=== PATIENT | female | born 1990 | race Caucasian/White ===

== ENCOUNTER 2021-06-07 07:12 | Inpatient (IN) ==
[2021-06-07] MEDS ORDERED: OXYTOCIN 30 UNITS/500 ML BAG IV PRN ×2 (07:35→07:57)
[2021-06-07] MEDS ORDERED: SODIUM CHLORIDE 0.9% 250 ML IV PRN (08:00)
[2021-06-07 08:29] LABS: Hematocrit (blood only) 39.2 % (37-47); Hemoglobin 12.9 g/dL (12.0-16.0); Mean Corpuscular Hemoglobin 23.5 pg (25-34); Mean Corpuscular Hgb Conc 32.9 g/dL (32-36); Mean Corpuscular Volume 71.5 fL (80-100); Mean Platelet Volume 10.8 fL (7.4-10.4); Platelet Count 235 K/uL (130-400); RDW Coefficient of Variation 15.2 % (11.5-14.5); RDW Standard Deviation 39.7 fL (36.4-46.3); Red Blood Count 5.48 M/uL (4.2-5.4); White Blood Count 8.49 K/uL (4.8-10.8)
--- NOTE | 2021-06-07 08:29 | History & Physical Report ---
Date of Service June 07, 2021 Assessment & Plan (1) History of section complicating : Plan: 30-year-old -0-1-2 at 39 weeks and 5 days of gestation with history of prior section for ABVD for , Vital signs stable afebrile, heart rate reassuring, GBS negative, coronavirus testing negative, Patient understand the risks of and signed an informed consent, Cervix is favorable, discussed options of Davis balloon placement with low-dose oxytocin and AROM when able she understands risks of increased rupture with oxytocin use and agrees with plan. Plan to admit, monitor continuously, labs, IV fluids, Davis balloon mechanical cervical dilatation with low-dose oxytocin per protocol, All questions were answered. (2) History of twin in prior : (3) Desires (vaginal after ) trial: Admission and Anticipated Discharge Date Admission Date: June 07, 2021 History of Present Illness Primary Care Provider: Jennifer Henderson MD Patient is a 30-year-old 012 at 39 weeks and 5 days of gestation who is presenting today for scheduled induction of labor at term. She has a history of doing deliveries baby A was delivered vaginal and baby B was delivered via C- section. Patient has been planning to have TOLAC/ ( trial of labor after C- section/vaginal after ) Last ultrasound showed: 05/31/21 Biparietal diameter: 9.6 cm, 39w 2d Head circumference: 35.4 cm, 41w 3d Abdominal circumference: 33.0 cm, 36w 6d Femur length: 7.1 cm, 36w 1d Humeral length: 6.1 cm, 35w 3d HC/AC: 1.07, which is elevated. EFW: 3225 g +/- 477 g which is the 37th percentile. Utilizing the date of delivery obtained from the initial scan, growth of the BPD, HC, AC, femur and humerus is within normal limits. Head circumference growth is at the upper range of normal. Humeral growth is at the lower range of normal. IMPRESSION 1. HC/AC ratio is borderline elevated, as above. 2. Normal BRISEYDA 3. Vertex presentation. Patient was scheduled for induction of labor sooner than later due to head circumference and head of her dates. Patient understands risks of uterine rupture which may also increase with using induction agents like oxytocin. Patient understand the risks of uterine rupture as intra-abdominal bleeding, hypoxia, injury, even . I gave her information from a cog about the benefits and risks of versus repeat . She read them all and signed an informed consent. Patient has been feeling irregular contractions since yesterday but not painful. She denies leakage of fluid or vaginal bleeding. She reports good movements. Her has been uncomplicated except above GBS negative SARS COVID2 Negative Allergies Allergy/AdvReac Type Severity Reaction Status Date / Time No Known Allergies Allergy Unverified 06/07/21 08:02 Home Medications Medication Instructions Recorded Confirmed Type PNV 153-FA 400 mcg-om3 35 mg-dha 1 tab PO DAILY 06/07/21 06/07/21 History 25 mg-epa 5 mg-fish oil chew tablet ( Gummies) ferrous sulfate 325 mg (65 mg 325 mg PO DAILY 06/07/21 06/07/21 History iron) tablet (iron) Patient History Medical History (Updated 06/07/21 @ 08:26 by Ulices Berger MD) delivery delivered NOV 2017 Prolactinoma Thyroid nodule Surgical History (Updated 06/07/21 @ 08:26 by Ulices Berger MD) H/O ovarian cystectomy AUGUST 2009 Family History Father Diabetes Social History Smoking Status: Never smoker Hx Alcohol Use: No Hx Substance Use: No Preferred Language: Occitan Communication Ability: Effective Hotel Receptionist Required: No Beliefs That Will Affect Care: None marital status: Current Living Situation: Spouse Feels Safe at Home: Yes Safety Concerns: Feels Safe At This Time Assistive Devices: None OB History 2015, November 2017, induction at 38 weeks for twin , baby A delivered vaginal, baby B delivered via , Current [employer] History Denies history of STDs including chlamydia, gonorrhea, herpes Review of Systems as per Subjective / HPI Physical Exam Constitutional: well developed and well nourished Comfortable, not in acute distress Gastrointestinal (Abdomen): normal bowel sounds, soft, nontender, no hepatosplenomegaly (Gravid, Phil 7 to 8 pounds) Genitourinary: normal external appearance OB Exam Abdomen: + vertex Manual OB Exam: + cervical dilation 2 cm, + cervical effacement 50% and + station high OB Exam Monitor Tracing: + external uterine monitor used and + category I Results & Data ([facility]) Vital Signs (Past 12 Hours) Vital Signs Temp Pulse Resp BP 06/07/21 07:24 36.5 C 20 06/07/21 07:23 96 H 117/74
[2021-06-07] MEDS: LACTATED RINGER'S 1,000 ML IV PRN ×4 (08:32→21:04)
[2021-06-07 08:51] LABS: Alanine Aminotransferase 9 U/L (7-52); Albumin Globulin Ratio 1.1 (0.9-2); Albumin Level 3.6 gm/dl (3.4-5.0); Alkaline Phosphatase 107 U/L (34-104); Anion Gap 9 (3-11); Aspartate Aminotransferase 15 U/L (13-39); Bilirubin,Total 0.3 mg/dl (0.2-1.0); Blood Urea Nitrogen 6 mg/dl (6-23); Calcium 9.1 mg/dl (8.5-10.1); Carbon Dioxide 21 mmol/L (21-32); Chloride 106 mmol/L (98-107); Est GFR (African American) 139.8 ml/min; Est GFR (Non-African American) 120.6 ml/min; Globulin 3.2 gm/dl (2.5-4.0); Glucose 73 mg/dl (70-99(Fasting)); Potassium 3.5 mmol/L (3.5-5.1); Sodium 136 mmol/L (136-145); Total Protein 6.8 gm/dl (6.0-8.3)
[2021-06-07] MEDS ORDERED: BUTORPHANOL TARTRATE 1 MG/ML VIAL IV PRN (09:29)
[2021-06-07] MEDS ORDERED: miSOPROStoL 50 MCG TAB PO SCH (14:30)
--- NOTE | 2021-06-07 14:47 | Obstetrical Progress Note ---
Date of Service June 07, 2021 Assessment & Plan Admission and Anticipated Discharge Date Admission Date: June 07, 2021 Subjective Patient is reevaluated. She rates her pain 4/10, does not need epidural yet Bed side US: vertex, mcguire balloon in vagina, FHR 130's VE; Mcguire in vagina, removed it, cervix 4-5 cm/ 50%/ -2, tight bulginh bag, AROM'ed clear fluid FHR categ I [place]: ctxs q 2-4 min, Oxytocin is at 10 miu/ min Continue to monitor closely Results & Data ([facility]) Vital Signs (Past 12 Hours) Vital Signs Temp Pulse Resp BP 06/07/21 14:02 71 115/67 06/07/21 14:00 36.5 C 06/07/21 13:30 20 06/07/21 13:01 78 112/62 06/07/21 13:00 20 06/07/21 12:27 20 06/07/21 12:05 85 110/70 06/07/21 12:00 06/07/21 11:30 06/07/21 11:00 36.6 C 06/07/21 10:59 79 116/70 06/07/21 10:30 20 06/07/21 10:01 87 120/62 06/07/21 10:00 20 06/07/21 09:00 06/07/21 08:57 85 115/70 06/07/21 07:24 36.5 C 06/07/21 07:23 96 H 117/74
[2021-06-07] MEDS ORDERED: ePHEDrine sulfate 50 MG/ML AMP ONE (15:01)
[2021-06-07] MEDS ORDERED: BUPIVACAINE 0.25% 30 ML VIAL ONE (15:01)
[2021-06-07] MEDS ORDERED: fentaNYL citrate 100 MCG/2 ML VIAL ONE (15:01)
[2021-06-07] MEDS ORDERED: SODIUM CHLORIDE 0.9% INJ 10 ML VIAL ONE (15:01)
[2021-06-07] MEDS ORDERED: fentaNYL 2MCG/ML ROPIVACAINE 1.25MG/ML 100 ML BAG EPI ONE (15:02)
[2021-06-07] MEDS ORDERED: ePHEDrine sulfate 50 MG/ML AMP IV PRN (15:10)
[2021-06-07] MEDS ORDERED: fentaNYL 2MCG/ML ROPIVACAINE 1.25MG/ML 100 ML BAG EPI PRN (15:10)
[2021-06-07] MEDS ORDERED: NALBUPHINE HCL INJ 10 MG/ML AMP IV PRN (15:10)
[2021-06-07] MEDS ORDERED: ONDANSETRON INJ 2 MG/ML 2 ML VIAL IV PRN (15:10)
[2021-06-07] MEDS ORDERED: NALOXONE HCL 0.4 MG/1 ML VIAL/CARP IV PRN (15:10)
[2021-06-07] MEDS ORDERED: diphenhydrAMINE 50 MG/ML VIAL IV PRN (15:10)
[2021-06-07] MEDS ORDERED: NALOXONE HCL 1 MG in SODIUM CHLORIDE 0.9% 1000ML 1,000 ML IV PRN (15:10)
--- NOTE | 2021-06-07 16:31 | Obstetrical Progress Note ---
Date of Service June 07, 2021 Assessment & Plan Admission and Anticipated Discharge Date Admission Date: June 07, 2021 Subjective Patient became painful after AROM and received epidural for pain. Now she is comfortable and has no complaints. Still leaking clear fluid, heart rate category 1, contractions every 2 to 3 minutes. Pitocin is still at 10 miu/min. Continue to monitor closely. Results & Data ([facility]) Vital Signs (Past 12 Hours) Vital Signs Temp Pulse Resp BP Pulse Ox 06/07/21 16:25 85 92 06/07/21 16:24 98 H 90 06/07/21 16:21 36.3 C L 20 06/07/21 16:20 91 H 100 06/07/21 16:19 84 118/61 06/07/21 16:15 88 100 06/07/21 16:12 94 H 125/61 06/07/21 16:10 92 H 100 06/07/21 16:08 90 125/76 06/07/21 16:06 20 06/07/21 16:05 94 H 96 06/07/21 16:01 91 H 111/58 L 06/07/21 16:00 85 20 100 06/07/21 15:59 90 118/64 06/07/21 15:57 82 118/62 06/07/21 15:56 90 114/55 L 06/07/21 15:55 92 H 100 06/07/21 15:54 89 92 06/07/21 15:53 86 118/54 L 06/07/21 15:50 86 20 100 06/07/21 15:47 85 88 L 06/07/21 15:45 87 100 06/07/21 15:40 100 H 93 06/07/21 15:37 82 127/78 06/07/21 15:35 78 126/71 100 06/07/21 15:34 79 92 06/07/21 15:30 79 100 06/07/21 15:29 83 90 06/07/21 15:25 85 100 06/07/21 15:21 24 06/07/21 15:20 88 88 L 06/07/21 15:18 87 100 06/07/21 15:13 86 91 06/07/21 15:12 83 100 06/07/21 15:07 79 100 06/07/21 15:00 22 06/07/21 14:30 20 03/28/22 14:02 71 115/67 06/07/21 14:00 36.5 C 20 06/07/21 13:30 20 06/07/21 13:01 78 112/62 06/07/21 13:00 20 06/07/21 12:27 20 06/07/21 12:05 85 110/70 06/07/21 12:00 20 06/07/21 11:30 20 06/07/21 11:00 36.6 C 20 06/07/21 10:59 79 116/70 06/07/21 10:30 20 06/07/21 10:01 87 120/62 06/07/21 10:00 20 06/07/21 09:00 20 06/07/21 08:57 85 115/70 06/07/21 07:24 36.5 C 20 06/07/21 07:23 96 H 117/74
--- NOTE | 2021-06-07 16:43 | Anesthesiology Consultation ---
Date of Service June 07, 2021 Assessment & Plan ASA ASA2 Proposed Anesthesia Anesthesia Type: Labor Epidural Risk / Benefits Reviewed With: PT / POA / Parent / Guardian, Accepts Plan and Informed Consent Obtained History Height/Weight Height: 5 ft 2 in Weight: 80.286 kg Allergies Allergy/AdvReac Type Severity Reaction Status Date / Time No Known Allergies Allergy Unverified 06/07/21 08:02 Medications Home Medications Medication Instructions Recorded Confirmed Last Taken PNV 153-FA 400 mcg-om3 35 mg-dha 1 tab PO DAILY 06/07/21 06/07/21 06/06/21 09:00 25 mg-epa 5 mg-fish oil chew tablet ( Gummies) ferrous sulfate 325 mg (65 mg 325 mg PO DAILY 06/07/21 06/07/21 06/05/21 22:00 iron) tablet (iron) Active Medications Generic Name Dose Route Start Last Admin Trade Name Freq PRN Reason Stop Dose Admin Lactated Ringer's 1,000 mls @ 150 mls/hr 06/07/21 07:35 06/07/21 15:53 Lr IV 06/09/21 07:34 150 mls/hr .[id number] PRN Administration L&D Protocol Protocol Oxytocin 30 units in 500 mls @ 10 mls/hr 06/07/21 07:57 06/07/21 13:30 Pitocin IV 06/09/21 07:56 0.6 units/hr .Q24H PRN 10 mls/hr Labor Induction/Augmentation Titration Protocol 0.6 UNITS/HR Past Medical History Medical History delivery delivered NOV 2017 Prolactinoma Thyroid nodule Exercise / Class Metabolic Activity II 4-5 Yardwork/Stairs/Walk up hill Past Family History Family History Father Diabetes Past Surgical History Surgical History H/O ovarian cystectomy AUGUST 2009 Past Anesthesia History No Hx of Anesthesia Complications and No Family Hx of Anesthesia Complications History of PONV No Hx of PONV and No Hx of Motion Sickness Social History Smoking Status: Never smoker Hx Alcohol Use: No Hx Substance Use: No Review of Systems denies fever/cough/ colds/ chest pain/ SOB/ ELKIN denies ELKIN Physical Exam Vital Signs Last Vital Signs Temp 36.3 C L 06/07/21 16:21 Pulse 76 06/07/21 16:40 Resp 20 06/07/21 16:30 BP 98/51 L 06/07/21 16:35 Pulse Ox 100 06/07/21 16:40 ENMT Mouth: no TMJ abnormality and no dentition abnormality Thyromental Distance: > or= 3.5 Finger Breadths Mallampati Class: II Neck neck extension not limited Respiratory normal respiratory effort; no respiratory distress Auscultation: lungs clear to auscultation bilaterally Cardiovascular Rate/Rhythm: regular rate and regular rhythm Neurologic moves all extremities Psychiatric Orientation: alert and oriented x 3 Testing Laboratory Results 06/07/21 08:18 06/07/21 08:18 Blood Type O Positive 06/07/21 08:18 Antibody Screen NEGATIVE 06/07/21 08:18
--- NOTE | 2021-06-07 17:27 | Obstetrical Progress Note ---
Date of Service June 07, 2021 Assessment & Plan Admission and Anticipated Discharge Date Admission Date: June 07, 2021 Subjective Patient is comfortable, no pain nor pressure FHR had mild early decelerations with ctxs with quick recovery and moderate variability VE: Patient bladder is full, cervix is unchanged, head is high, gush of clear fluid + Davis catheter is placed to gravity, drained 600 ml clear urine Continue to monitor closely Results & Data ([facility]) Vital Signs (Past 12 Hours) Vital Signs Temp Pulse Resp BP Pulse Ox 06/07/21 17:20 72 106/55 L 06/07/21 17:15 79 100 06/07/21 17:10 80 100 06/07/21 17:05 72 100 06/07/21 17:02 86 94 06/07/21 17:00 71 20 100 06/07/21 16:55 82 100 06/07/21 16:50 77 96/52 L 100 06/07/21 16:45 69 100 06/07/21 16:40 76 100 06/07/21 16:35 77 98/51 L 100 06/07/21 16:34 74 92 06/07/21 16:30 76 20 100 06/07/21 16:25 85 92 06/07/21 16:24 98 H 90 06/07/21 16:21 36.3 C L 20 06/07/21 16:20 91 H 100 06/07/21 16:19 84 118/61 06/07/21 16:15 88 100 06/07/21 16:12 94 H 125/61 06/07/21 16:10 92 H 100 06/07/21 16:08 90 125/76 06/07/21 16:06 20 06/07/21 16:05 94 H 96 06/07/21 16:01 91 H 111/58 L 06/07/21 16:00 85 20 100 06/07/21 15:59 90 118/64 06/07/21 15:57 82 118/62 06/07/21 15:56 90 114/55 L 06/07/21 15:55 92 H 100 06/07/21 15:54 89 92 06/07/21 15:53 86 118/54 L 06/07/21 15:50 86 20 100 06/07/21 15:47 85 88 L 06/07/21 15:45 87 100 06/07/21 15:40 100 H 93 06/07/21 15:37 82 127/78 06/07/21 15:35 78 126/71 100 06/07/21 15:34 79 92 06/07/21 15:30 79 100 06/07/21 15:29 83 90 06/07/21 15:25 85 100 06/07/21 15:21 24 06/07/21 15:20 88 88 L 06/07/21 15:18 87 100 06/07/21 15:13 86 91 06/07/21 15:12 83 100 06/07/21 15:07 79 100 06/07/21 15:00 22 06/07/21 14:30 20 06/07/21 14:02 71 115/67 06/07/21 14:00 36.5 C 20 06/07/21 13:30 20 06/07/21 13:01 78 112/62 06/07/21 13:00 20 06/07/21 12:27 20 06/07/21 12:05 85 110/70 06/07/21 12:00 20 06/07/21 11:30 20 06/07/21 11:00 36.6 C 20 06/07/21 10:59 79 116/70 06/07/21 10:30 20 06/07/21 10:01 87 120/62 06/07/21 10:00 20 06/07/21 09:00 20 06/07/21 08:57 85 115/70 06/07/21 07:24 36.5 C 20 06/07/21 07:23 96 H 117/74
--- NOTE | 2021-06-07 18:41 | Obstetrical Progress Note ---
Date of Service June 07, 2021 Assessment & Plan Admission and Anticipated Discharge Date Admission Date: June 07, 2021 Subjective heart rate had early decelerations with of the contractions with quick s pontaneous recovery and moderate variability between. Vaginal exam, cervix is 5 to 6 cm dilated, 70% effaced, head at -2 station without contraction and -1 with contraction, anterior fontanelle is at 7 o'clock position, [place] with contractions every 2 to 4 minutes, Continue to monitor closely Results & Data ([facility]) Vital Signs (Past 12 Hours) Vital Signs Temp Pulse Resp BP Pulse Ox 06/07/21 18:36 71 100 06/07/21 18:34 80 108/69 06/07/21 18:31 75 100 06/07/21 18:30 20 06/07/21 18:26 36.4 C L 76 20 100 06/07/21 18:22 34 L 109/65 06/07/21 18:21 81 100 06/07/21 18:19 67 89 L 06/07/21 18:16 72 100 06/07/21 18:11 85 99 06/07/21 18:06 79 100 06/07/21 18:04 85 93 06/07/21 18:00 89 20 99 06/07/21 17:59 87 85 L 06/07/21 17:55 83 100 06/07/21 17:50 85 100 06/07/21 17:49 84 98/58 L 06/07/21 17:47 86 93 06/07/21 17:45 81 20 100 06/07/21 17:40 86 100 06/07/21 17:35 79 108/59 L 100 06/07/21 17:33 86 91 06/07/21 17:30 90 100 06/07/21 17:25 84 100 06/07/21 17:23 92 H 89 L 06/07/21 17:20 80 106/55 L 100 06/07/21 17:15 79 100 06/07/21 17:10 80 100 06/07/21 17:05 72 100 06/07/21 17:02 86 94 06/07/21 17:00 71 20 100 06/07/21 16:55 82 100 06/07/21 16:50 77 96/52 L 100 06/07/21 16:45 69 100 06/07/21 16:40 76 100 06/07/21 16:35 77 98/51 L 100 06/07/21 16:34 74 92 06/07/21 16:30 36.3 C L 76 20 100 06/07/21 16:25 85 92 06/07/21 16:24 98 H 90 06/07/21 16:21 36.3 C L 20 06/07/21 16:20 91 H 100 06/07/21 16:19 84 118/61 06/07/21 16:15 88 100 06/07/21 16:12 94 H 125/61 06/07/21 16:10 92 H 100 06/07/21 16:08 90 125/76 06/07/21 16:06 20 06/07/21 16:05 94 H 96 06/07/21 16:01 91 H 111/58 L 06/07/21 16:00 85 20 100 06/07/21 15:59 90 118/64 06/07/21 15:57 82 118/62 06/07/21 15:56 90 114/55 L 06/07/21 15:55 92 H 100 06/07/21 15:54 89 92 06/07/21 15:53 86 118/54 L 06/07/21 15:50 86 20 100 06/07/21 15:47 85 88 L 06/07/21 15:45 87 100 06/07/21 15:40 100 H 93 06/07/21 15:37 82 127/78 06/07/21 15:35 78 126/71 100 06/07/21 15:34 79 92 06/07/21 15:30 79 100 06/07/21 15:29 83 90 06/07/21 15:25 85 100 06/07/21 15:21 24 06/07/21 15:20 88 88 L 06/07/21 15:18 87 100 06/07/21 15:13 86 91 06/07/21 15:12 83 100 06/07/21 15:07 79 100 06/07/21 15:00 22 06/07/21 14:30 20 06/07/21 14:02 71 115/67 06/07/21 14:00 36.5 C 20 06/07/21 13:30 20 06/07/21 13:01 78 112/62 06/07/21 13:00 20 06/07/21 12:27 20 06/07/21 12:05 85 110/70 06/07/21 12:00 20 06/07/21 11:30 20 06/07/21 11:00 36.6 C 06/07/21 10:59 79 116/70 06/07/21 10:30 20 06/07/21 10:01 87 120/62 06/07/21 10:00 20 06/07/21 09:00 06/07/21 08:57 85 115/70 06/07/21 07:24 36.5 C 06/07/21 07:23 96 H 117/74
--- NOTE | 2021-06-07 21:49 | Obstetrical Progress Note ---
Date of Service June 07, 2021 Assessment & Plan Admission and Anticipated Discharge Date Admission Date: June 07, 2021 Subjective Late entry from 8:45 PM. Patient felt pressure and wanted to be checked. Her cervix was 10 cm dilated, 100% effaced head was at 0 to +1 station heart rate was category 1 with early decelerations with some of the contractions. Patient had trial push and heart rate had decelerations to 80s/90s for about 4 minutes. Oxytocin was stopped and nasal oxygen was started heart rate recovered back to normal 130s with good variability. Epidural rate was decreased and patient was late to labor down. Patient is reevaluated again since she is feeling more pressure but no pain no urged to push. Head station is about the same with not much sent with pushing. Patient desires to rest relax and restart pushing when she feels more pressure. Continue to monitor closely. Results & Data ([facility]) Vital Signs (Past 12 Hours) Vital Signs Temp Pulse Resp BP Pulse Ox 06/07/21 21:41 99 H 100 06/07/21 21:37 102 H 89 L 06/07/21 21:36 107 H 100 06/07/21 21:35 110 H 104/60 06/07/21 21:31 109 H 100 06/07/21 21:26 91 H 100 06/07/21 21:24 100 H 91 06/07/21 21:21 101 H 100 06/07/21 21:19 94 H 116/67 06/07/21 21:16 87 100 06/07/21 21:12 108 H 93 06/07/21 21:11 108 H 96 06/07/21 21:06 96 H 100 06/07/21 21:05 93 H 120/61 06/07/21 21:02 104 H 91 06/07/21 21:01 96 H 100 06/07/21 21:00 36.8 C 18 06/07/21 20:56 91 H 87 L 06/07/21 20:51 108 H 100 06/07/21 20:50 100 H 114/56 L 06/07/21 20:46 96 H 100 06/07/21 20:41 97 H 100 06/07/21 20:39 96 H 92 06/07/21 20:36 97 H 100 06/07/21 20:35 105 H 138/74 06/07/21 20:31 101 H 92 06/07/21 20:27 18 06/07/21 20:26 92 H 100 06/07/21 20:24 89 90 06/07/21 20:21 84 100 06/07/21 20:20 82 113/61 06/07/21 20:19 86 89 L 06/07/21 20:16 85 100 06/07/21 20:11 90 99 06/07/21 20:10 90 88 L 06/07/21 20:07 84 113/79 06/07/21 20:06 84 100 06/07/21 20:03 82 89 L 06/07/21 20:01 76 18 100 06/07/21 19:57 99 H 90 06/07/21 19:56 83 98 06/07/21 19:52 96 H 91 06/07/21 19:51 95 H 100 06/07/21 19:50 73 107/63 06/07/21 19:46 80 100 06/07/21 19:41 77 100 06/07/21 19:36 75 94 06/07/21 19:35 75 108/64 06/07/21 19:34 81 93 06/07/21 19:31 85 100 06/07/21 19:26 92 H 88 L 06/07/21 19:23 88 91 06/07/21 19:21 90 98/53 L 100 06/07/21 19:17 82 91 06/07/21 19:16 82 97 06/07/21 19:11 36.8 C 95 H 18 89 L 06/07/21 19:06 81 100 06/07/21 19:05 83 109/73 92 06/07/21 19:01 96 H 100 06/07/21 18:58 82 90 06/07/21 18:56 77 100 06/07/21 18:52 74 92 06/07/21 18:51 72 110/68 99 06/07/21 18:46 80 99 06/07/21 18:41 84 100 06/07/21 18:36 71 100 06/07/21 18:34 80 108/69 06/07/21 18:31 75 100 06/07/21 18:30 20 06/07/21 18:26 36.4 C L 76 20 100 06/07/21 18:22 34 L 109/65 06/07/21 18:21 81 100 06/07/21 18:19 67 89 L 06/07/21 18:16 72 100 06/07/21 18:11 85 99 06/07/21 18:06 79 100 06/07/21 18:04 85 93 06/07/21 18:00 89 20 99 06/07/21 17:59 87 85 L 06/07/21 17:55 83 100 06/07/21 17:50 85 100 06/07/21 17:49 84 98/58 L 06/07/21 17:47 86 93 06/07/21 17:45 81 20 100 06/07/21 17:40 86 100 06/07/21 17:35 79 108/59 L 100 06/07/21 17:33 86 91 06/07/21 17:30 90 100 06/07/21 17:25 84 100 06/07/21 17:23 92 H 89 L 06/07/21 17:20 80 106/55 L 100 06/07/21 17:15 79 100 06/07/21 17:10 80 100 06/07/21 17:05 72 100 06/07/21 17:02 86 94 06/07/21 17:00 71 20 100 06/07/21 16:55 82 100 06/07/21 16:50 77 96/52 L 100 06/07/21 16:45 69 100 06/07/21 16:40 76 100 06/07/21 16:35 77 98/51 L 100 06/07/21 16:34 74 92 06/07/21 16:30 36.3 C L 76 20 100 06/07/21 16:25 85 92 06/07/21 16:24 98 H 90 06/07/21 16:21 36.3 C L 20 06/07/21 16:20 91 H 100 06/07/21 16:19 84 118/61 06/07/21 16:15 88 100 06/07/21 16:12 94 H 125/61 06/07/21 16:10 92 H 100 06/07/21 16:08 90 125/76 06/07/21 16:06 20 06/07/21 16:05 94 H 96 06/07/21 16:01 91 H 111/58 L 06/07/21 16:00 85 20 100 06/07/21 15:59 90 118/64 06/07/21 15:57 82 118/62 06/07/21 15:56 90 114/55 L 06/07/21 15:55 92 H 100 06/07/21 15:54 89 92 06/07/21 15:53 86 118/54 L 06/07/21 15:50 86 20 100 06/07/21 15:47 85 88 L 06/07/21 15:45 87 100 06/07/21 15:40 100 H 93 06/07/21 15:37 82 127/78 06/07/21 15:35 78 126/71 100 06/07/21 15:34 79 92 06/07/21 15:30 79 100 06/07/21 15:29 83 90 06/07/21 15:25 85 100 06/07/21 15:21 24 06/07/21 15:20 88 88 L 06/07/21 15:18 87 100 06/07/21 15:13 86 91 06/07/21 15:12 83 100 06/07/21 15:07 79 100 06/07/21 15:00 22 06/07/21 14:30 20 06/07/21 14:02 71 115/67 06/07/21 14:00 36.5 C 20 06/07/21 13:30 20 06/07/21 13:01 78 112/62 06/07/21 13:00 20 06/07/21 12:27 20 06/07/21 12:05 85 110/70 06/07/21 12:00 20 06/07/21 11:30 20 06/07/21 11:00 36.6 C 20 06/07/21 10:59 79 116/70 06/07/21 10:30 20 06/07/21 10:01 87 120/62 06/07/21 10:00 20
--- NOTE | 2021-06-07 23:21 | Obstetrical Progress Note ---
Date of Service June 07, 2021 Assessment & Plan Admission and Anticipated Discharge Date Admission Date: June 07, 2021 Subjective Patient labored down for over an hour She feels pressure and contractions started to hurt Started to push with ctxs, head is still at 0 station and feels Occiput posterior Bed side US: OP, eyes facing towards patient's anterior abdominal wall. FHR 130-140's with moderate variability, early decels with some ctxs Patient does not want C Section at all and wants to try all options for successful . Plan to push in knee chest position Contineu to monitor closely. Results & Data ([facility]) Vital Signs (Past 12 Hours) Vital Signs Temp Pulse Resp BP Pulse Ox 06/07/21 23:17 110 H 90 06/07/21 23:16 106 H 98 06/07/21 23:11 98 H 71 L 06/07/21 23:06 115 H 99 06/07/21 23:04 113 H 129/61 06/07/21 23:01 106 H 100 06/07/21 22:56 104 H 100 06/07/21 22:51 112 H 100 06/07/21 22:50 112 H 127/65 91 06/07/21 22:46 102 H 100 06/07/21 22:44 93 H 93 06/07/21 22:41 90 100 06/07/21 22:36 93 H 103/54 L 100 06/07/21 22:31 100 H 100 06/07/21 22:26 95 H 100 06/07/21 22:22 86 111/56 L 06/07/21 22:21 87 100 06/07/21 22:16 86 100 06/07/21 22:12 110 H 93 06/07/21 22:11 102 H 100 06/07/21 22:07 108 H 91 06/07/21 22:06 106 H 97 06/07/21 22:05 98 H 120/69 06/07/21 22:01 108 H 100 06/07/21 21:56 94 H 100 06/07/21 21:51 97 H 100 06/07/21 21:50 98 H 111/69 06/07/21 21:46 94 H 100 06/07/21 21:41 99 H 100 06/07/21 21:37 102 H 89 L 06/07/21 21:36 107 H 100 06/07/21 21:35 110 H 104/60 06/07/21 21:31 109 H 100 06/07/21 21:26 91 H 100 06/07/21 21:24 100 H 91 06/07/21 21:21 101 H 100 06/07/21 21:19 94 H 116/67 06/07/21 21:16 87 100 06/07/21 21:12 108 H 93 06/07/21 21:11 108 H 96 06/07/21 21:06 96 H 100 06/07/21 21:05 93 H 120/61 06/07/21 21:02 104 H 91 06/07/21 21:01 96 H 100 06/07/21 21:00 36.8 C 18 06/07/21 20:56 91 H 87 L 06/07/21 20:51 108 H 100 06/07/21 20:50 100 H 114/56 L 06/07/21 20:46 96 H 100 06/07/21 20:41 97 H 100 06/07/21 20:39 96 H 92 06/07/21 20:36 97 H 100 06/07/21 20:35 105 H 138/74 06/07/21 20:31 101 H 92 06/07/21 20:27 18 06/07/21 20:26 92 H 100 06/07/21 20:24 89 90 06/07/21 20:21 84 100 06/07/21 20:20 82 113/61 06/07/21 20:19 86 89 L 06/07/21 20:16 85 100 06/07/21 20:11 90 99 06/07/21 20:10 90 88 L 06/07/21 20:07 84 113/79 06/07/21 20:06 84 100 06/07/21 20:03 82 89 L 06/07/21 20:01 76 18 100 06/07/21 19:57 99 H 90 06/07/21 19:56 83 98 06/07/21 19:52 96 H 91 06/07/21 19:51 95 H 100 06/07/21 19:50 73 107/63 06/07/21 19:46 80 100 06/07/21 19:41 77 100 06/07/21 19:36 75 94 06/07/21 19:35 75 108/64 03/28/22 19:34 81 93 06/07/21 19:31 85 100 06/07/21 19:26 92 H 88 L 06/07/21 19:23 88 91 06/07/21 19:21 90 98/53 L 100 06/07/21 19:17 82 91 06/07/21 19:16 82 97 06/07/21 19:11 36.8 C 95 H 18 89 L 06/07/21 19:06 81 100 06/07/21 19:05 83 109/73 92 06/07/21 19:01 96 H 100 06/07/21 18:58 82 90 06/07/21 18:56 77 100 06/07/21 18:52 74 92 06/07/21 18:51 72 110/68 99 06/07/21 18:46 80 99 06/07/21 18:41 84 100 06/07/21 18:36 71 100 06/07/21 18:34 80 108/69 06/07/21 18:31 75 100 06/07/21 18:30 20 06/07/21 18:26 36.4 C L 76 20 100 06/07/21 18:22 34 L 109/65 06/07/21 18:21 81 100 06/07/21 18:19 67 89 L 06/07/21 18:16 72 100 06/07/21 18:11 85 99 06/07/21 18:06 79 100 06/07/21 18:04 85 93 06/07/21 18:00 89 20 99 06/07/21 17:59 87 85 L 06/07/21 17:55 83 100 06/07/21 17:50 85 100 06/07/21 17:49 84 98/58 L 06/07/21 17:47 86 93 06/07/21 17:45 81 20 100 06/07/21 17:40 86 100 06/07/21 17:35 79 108/59 L 100 06/07/21 17:33 86 91 06/07/21 17:30 90 100 06/07/21 17:25 84 100 06/07/21 17:23 92 H 89 L 06/07/21 17:20 80 106/55 L 100 06/07/21 17:15 79 100 06/07/21 17:10 80 100 06/07/21 17:05 72 100 06/07/21 17:02 86 94 06/07/21 17:00 71 20 100 06/07/21 16:55 82 100 06/07/21 16:50 77 96/52 L 100 06/07/21 16:45 69 100 06/07/21 16:40 76 100 06/07/21 16:35 77 98/51 L 100 06/07/21 16:34 74 92 06/07/21 16:30 36.3 C L 76 20 100 06/07/21 16:25 85 92 06/07/21 16:24 98 H 90 06/07/21 16:21 36.3 C L 20 06/07/21 16:20 91 H 100 06/07/21 16:19 84 118/61 06/07/21 16:15 88 100 06/07/21 16:12 94 H 125/61 06/07/21 16:10 92 H 100 06/07/21 16:08 90 125/76 06/07/21 16:06 20 06/07/21 16:05 94 H 96 06/07/21 16:01 91 H 111/58 L 06/07/21 16:00 85 20 100 06/07/21 15:59 90 118/64 06/07/21 15:57 82 118/62 06/07/21 15:56 90 114/55 L 06/07/21 15:55 92 H 100 06/07/21 15:54 89 92 06/07/21 15:53 86 118/54 L 06/07/21 15:50 86 20 100 06/07/21 15:47 85 88 L 06/07/21 15:45 87 100 06/07/21 15:40 100 H 93 06/07/21 15:37 82 127/78 06/07/21 15:35 78 126/71 100 06/07/21 15:34 79 92 06/07/21 15:30 79 100 06/07/21 15:29 83 90 06/07/21 15:25 85 100 06/07/21 15:21 24 06/07/21 15:20 88 88 L 06/07/21 15:18 87 100 06/07/21 15:13 86 91 06/07/21 15:12 83 100 06/07/21 15:07 79 100 03/28/22 15:00 22 06/07/21 14:30 20 06/07/21 14:02 71 115/67 06/07/21 14:00 36.5 C 20 06/07/21 13:30 20 06/07/21 13:01 78 112/62 06/07/21 13:00 20 06/07/21 12:27 20 06/07/21 12:05 85 110/70 06/07/21 12:00 20 06/07/21 11:30 20
[2021-06-08] MEDS ORDERED: AZITHROMYCIN 500 MG in DEXTROSE 5% 250 ML IV STA (00:38)
--- NOTE | 2021-06-08 00:42 | Obstetrical Progress Note ---
Date of Service June 08, 2021 Assessment & Plan Admission and Anticipated Discharge Date Admission Date: June 07, 2021 Subjective Patient has been fully dilated since 8:40 PM last night. she pushed for almost 2 hours but unable to bring the head down more than +1 station She pushed on knee-chest, all fours, on her sides and on her back but head has been at 0 to +1 station despite all pushing in different positions. Head started to become cone shaped in persistent occiput posterior postion which was also confirmed by bedside ultrasound. heart rate has been category 1 except deceleration with contractions. Patient is exhausted and desires repeat tonight. She understands is a major surgery with risks including but not limited to bleeding, infection, injury to surrounding organs like bowels bladder, scarring adhesion. She understood all and signed an informed consent. We will proceed with , all surgical team is notified and antibiotics were ordered. Continue to monitor closely. Results & Data ([facility]) Vital Signs (Past 12 Hours) Vital Signs Temp Pulse Resp BP Pulse Ox 06/08/21 00:36 92 H 100 06/08/21 00:35 97 H 92 06/08/21 00:31 81 100 06/08/21 00:27 101 H 93 06/08/21 00:26 107 H 96 06/08/21 00:21 90 105/67 100 06/08/21 00:16 97 H 100 06/08/21 00:11 104 H 100 06/08/21 00:10 101 H 88 L 06/08/21 00:06 103 H 100 06/08/21 00:03 108 H 89 L 06/08/21 00:01 113 H 100 06/07/21 23:56 105 H 72 L 06/07/21 23:51 99 H 100 06/07/21 23:50 100 H 90 06/07/21 23:46 114 H 100 06/07/21 23:41 112 H 94 06/07/21 23:40 105 H 92 06/07/21 23:36 118 H 100 06/07/21 23:35 86 88 L 06/07/21 23:31 96 H 100 06/07/21 23:26 116 H 100 06/07/21 23:24 99 H 92 06/07/21 23:21 113 H 98 06/07/21 23:17 110 H 90 06/07/21 23:16 106 H 98 06/07/21 23:11 98 H 71 L 06/07/21 23:06 115 H 99 06/07/21 23:04 113 H 129/61 06/07/21 23:01 106 H 100 06/07/21 22:56 104 H 100 06/07/21 22:51 112 H 100 06/07/21 22:50 112 H 127/65 91 06/07/21 22:46 102 H 100 06/07/21 22:44 93 H 93 06/07/21 22:41 90 100 06/07/21 22:36 93 H 103/54 L 100 06/07/21 22:31 100 H 100 06/07/21 22:26 95 H 100 06/07/21 22:22 86 111/56 L 06/07/21 22:21 87 100 06/07/21 22:16 86 100 06/07/21 22:12 110 H 93 06/07/21 22:11 102 H 100 06/07/21 22:07 108 H 91 06/07/21 22:06 106 H 97 06/07/21 22:05 98 H 120/69 06/07/21 22:01 108 H 100 06/07/21 21:56 94 H 100 06/07/21 21:51 97 H 100 06/07/21 21:50 98 H 111/69 06/07/21 21:46 94 H 100 06/07/21 21:41 99 H 100 06/07/21 21:37 102 H 89 L 06/07/21 21:36 107 H 100 06/07/21 21:35 110 H 104/60 06/07/21 21:31 109 H 100 06/07/21 21:26 91 H 100 06/07/21 21:24 100 H 91 06/07/21 21:21 101 H 100 06/07/21 21:19 94 H 116/67 06/07/21 21:16 87 100 06/07/21 21:12 108 H 93 06/07/21 21:11 108 H 96 06/07/21 21:06 96 H 100 06/07/21 21:05 93 H 120/61 06/07/21 21:02 104 H 91 06/07/21 21:01 96 H 100 06/07/21 21:00 36.8 C 18 06/07/21 20:56 91 H 87 L 06/07/21 20:51 108 H 100 06/07/21 20:50 100 H 114/56 L 06/07/21 20:46 96 H 100 06/07/21 20:41 97 H 100 06/07/21 20:39 96 H 92 06/07/21 20:36 97 H 100 06/07/21 20:35 105 H 138/74 06/07/21 20:31 101 H 92 06/07/21 20:27 18 06/07/21 20:26 92 H 100 06/07/21 20:24 89 90 06/07/21 20:21 84 100 06/07/21 20:20 82 113/61 06/07/21 20:19 86 89 L 06/07/21 20:16 85 100 06/07/21 20:11 90 99 06/07/21 20:10 90 88 L 06/07/21 20:07 84 113/79 06/07/21 20:06 84 100 06/07/21 20:03 82 89 L 06/07/21 20:01 76 18 100 06/07/21 19:57 99 H 90 06/07/21 19:56 83 98 06/07/21 19:52 96 H 91 06/07/21 19:51 95 H 100 06/07/21 19:50 73 107/63 06/07/21 19:46 80 100 06/07/21 19:41 77 100 06/07/21 19:36 75 94 06/07/21 19:35 75 108/64 06/07/21 19:34 81 93 06/07/21 19:31 85 100 06/07/21 19:26 92 H 88 L 06/07/21 19:23 88 91 06/07/21 19:21 90 98/53 L 100 06/07/21 19:17 82 91 06/07/21 19:16 82 97 06/07/21 19:11 36.8 C 95 H 18 89 L 06/07/21 19:06 81 100 06/07/21 19:05 83 109/73 92 06/07/21 19:01 96 H 100 06/07/21 18:58 82 90 06/07/21 18:56 77 100 06/07/21 18:52 74 92 06/07/21 18:51 72 110/68 99 06/07/21 18:46 80 99 06/07/21 18:41 84 100 06/07/21 18:36 71 100 06/07/21 18:34 80 108/69 06/07/21 18:31 75 100 06/07/21 18:30 20 06/07/21 18:26 36.4 C L 76 20 100 06/07/21 18:22 34 L 109/65 06/07/21 18:21 81 100 06/07/21 18:19 67 89 L 06/07/21 18:16 72 100 06/07/21 18:11 85 99 06/07/21 18:06 79 100 06/07/21 18:04 85 93 06/07/21 18:00 89 20 99 06/07/21 17:59 87 85 L 06/07/21 17:55 83 100 06/07/21 17:50 85 100 06/07/21 17:49 84 98/58 L 06/07/21 17:47 86 93 06/07/21 17:45 81 20 100 06/07/21 17:40 86 100 06/07/21 17:35 79 108/59 L 100 06/07/21 17:33 86 91 06/07/21 17:30 90 100 06/07/21 17:25 84 100 06/07/21 17:23 92 H 89 L 06/07/21 17:20 80 106/55 L 100 06/07/21 17:15 79 100 06/07/21 17:10 80 100 06/07/21 17:05 72 100 06/07/21 17:02 86 94 06/07/21 17:00 71 20 100 06/07/21 16:55 82 100 06/07/21 16:50 77 96/52 L 100 06/07/21 16:45 69 100 06/07/21 16:40 76 100 06/07/21 16:35 77 98/51 L 100 06/07/21 16:34 74 92 06/07/21 16:30 36.3 C L 76 20 100 06/07/21 16:25 85 92 06/07/21 16:24 98 H 90 06/07/21 16:21 36.3 C L 20 06/07/21 16:20 91 H 100 06/07/21 16:19 84 118/61 06/07/21 16:15 88 100 06/07/21 16:12 94 H 125/61 06/07/21 16:10 92 H 100 06/07/21 16:08 90 125/76 06/07/21 16:06 20 06/07/21 16:05 94 H 96 06/07/21 16:01 91 H 111/58 L 06/07/21 16:00 85 20 100 06/07/21 15:59 90 118/64 06/07/21 15:57 82 118/62 06/07/21 15:56 90 114/55 L 06/07/21 15:55 92 H 100 06/07/21 15:54 89 92 06/07/21 15:53 86 118/54 L 06/07/21 15:50 86 20 100 06/07/21 15:47 85 88 L 06/07/21 15:45 87 100 06/07/21 15:40 100 H 93 06/07/21 15:37 82 127/78 06/07/21 15:35 78 126/71 100 06/07/21 15:34 79 92 06/07/21 15:30 79 100 06/07/21 15:29 83 90 06/07/21 15:25 85 100 06/07/21 15:21 24 06/07/21 15:20 88 88 L 06/07/21 15:18 87 100 06/07/21 15:13 86 91 06/07/21 15:12 83 100 06/07/21 15:07 79 100 06/07/21 15:00 22 06/07/21 14:30 20 06/07/21 14:02 71 115/67 06/07/21 14:00 36.5 C 20 06/07/21 13:30 20 06/07/21 13:01 78 112/62 06/07/21 13:00 20
--- NOTE | 2021-06-08 00:43 | Post Operative Brief Note ---
Immediate Post Op Note v1 Date of Surgery June 08, 2021 Pre & Post Diagnosis Operation Date: 06/08/21 01:15 <No data on this case meets the specified criteria> Arrest of descent, failed TOLAC/ I identified the patient and participated in the time-out.: Yes Procedure Operation Date: 06/08/21 01:15 <No data on this case meets the specified criteria> Repeat Low transverse Ceserean Section. Surgeon Ulices Berger MD [employer] ERNESTINA Hong Estimated Blood Loss 600 Findings Consistent with Post-Op Diagnosis Drains Davis Catheter Anesthesia Type Labor Epidural Complications none Disposition Accompanied Patient To Recovery: Yes
[2021-06-08] MEDS ORDERED: LACTATED RINGER'S 1,000 ML IV SCH ×3 (00:45→02:30)
[2021-06-08] MEDS ORDERED: OXYTOCIN 10 UNITS/ML 10ML VIAL ONE (00:52)
[2021-06-08] MEDS ORDERED: MoRPHine SULFATE PF 1 MG/ML 10 ML AMP/VIAL ONE (00:52)
[2021-06-08] MEDS ORDERED: CITRIC ACID/SODIUM CITRATE 15 ML UDC PO SCH (01:00)
[2021-06-08] MEDS ORDERED: ceFAZolin 2000MG 2,000 MG/15 ML SYR IV SCH (01:00)
[2021-06-08] MEDS ORDERED: LIDOCAINE 2%/EPINEPHRINE 1:200,000 20 ML SDV ONE (01:20)
[2021-06-08] MEDS ORDERED: PHENYLEPHRINE 100MCG/ML 5ML SYR ONE (01:20)
[2021-06-08] MEDS ORDERED: ePHEDrine sulfate 50 MG/ML AMP ONE (01:28)
[2021-06-08] MEDS ORDERED: ONDANSETRON INJ 2 MG/ML 2 ML VIAL ONE (01:35)
[2021-06-08] MEDS ORDERED: MoRPHine SULFATE 2 MG/ML CARP IV PRN (02:07)
[2021-06-08] MEDS ORDERED: diphenhydrAMINE 50 MG/ML VIAL IV PRN ×2 (02:07→20:07)
[2021-06-08] MEDS ORDERED: ONDANSETRON INJ 2 MG/ML 2 ML VIAL IV PRN ×2 (02:07→20:07)
[2021-06-08] MEDS ORDERED: NALOXONE HCL 1 MG in SODIUM CHLORIDE 0.9% 1000ML 1,000 ML IV PRN (02:07)
[2021-06-08] MEDS ORDERED: NALOXONE HCL 0.4 MG/1 ML VIAL/CARP IV PRN (02:07)
[2021-06-08] MEDS ORDERED: NALOXONE HCL 0.08 MG in SYRINGE 1.8 ML IV PRN (02:07)
[2021-06-08] MEDS ORDERED: LACTATED RINGER'S 500 ML IV PRN (02:07)
[2021-06-08] MEDS ORDERED: MoRPHine SULFATE PF 1 MG/ML 10 ML AMP/VIAL EPI ONE (02:07)
[2021-06-08] MEDS ORDERED: NALBUPHINE HCL INJ 10 MG/ML AMP IV PRN (02:07)
[2021-06-08] MEDS ORDERED: ePHEDrine sulfate 50 MG/ML AMP IV PRN (02:07)
[2021-06-08] MEDS ORDERED: NO NARCOTICS OR SEDATIVES SCH (02:15)
[2021-06-08] MEDS ORDERED: SODIUM CHLORIDE 0.9% 1000ML 1,000 ML IV SCH (02:15)
[2021-06-08] MEDS ORDERED: DC INTRASPINAL MORPHINE SCH (02:15)
[2021-06-08] MEDS ORDERED: HYDROCORTISONE ACETATE 25 MG SUPP PR PRN (02:28)
[2021-06-08] MEDS ORDERED: DIPHTHERIA/TETANUS/PERTUSSIS 0.5 ML SYR/VIAL IM ONE (02:28)
[2021-06-08] MEDS ORDERED: SENNA 8.6 MG TAB PO PRN (02:28)
[2021-06-08] MEDS ORDERED: MEASLES, MUMPS & RUBELLA VIRUS VIAL SQ ONE (02:28)
[2021-06-08] MEDS ORDERED: BENZOCAINE 20% AER SPR 82.5 GM CAN EXT PRN (02:28)
[2021-06-08] MEDS ORDERED: MAGNESIUM HYDROXIDE SUSP 30 ML UDC PO PRN (02:28)
--- NOTE | 2021-06-08 03:20 | Anesthesiology Progress Note ---
Date of Service June 08, 2021 Anesthesia Post Procedure Vital Signs Vital Signs: Temp Pulse Resp BP Pulse Ox 06/08/21 03:18 102 H 99 06/08/21 03:17 86 118/57 L 06/08/21 03:13 94 H 100 06/08/21 03:08 87 100 06/08/21 03:07 85 125/67 06/08/21 03:03 96 H 99 06/08/21 02:58 97 H 103/58 L 97 06/08/21 02:53 93 H 97 06/08/21 02:48 97 H 122/56 L 98 06/08/21 02:43 92 H 100 06/08/21 02:39 103 H 120/58 L 06/08/21 02:38 103 H 99 06/08/21 02:33 112 H 93 06/08/21 02:28 113 H 119/56 L 98 06/08/21 00:56 92 H 100 06/08/21 00:51 100 H 86 L 06/08/21 00:46 88 100 06/08/21 00:44 95 H 89 L 06/08/21 00:41 95 H 100 06/08/21 00:36 92 H 100 06/08/21 00:35 97 H 92 06/08/21 00:31 81 100 06/08/21 00:27 101 H 93 06/08/21 00:26 107 H 96 06/08/21 00:21 90 105/67 100 06/08/21 00:16 97 H 100 06/08/21 00:11 104 H 100 06/08/21 00:10 101 H 88 L 06/08/21 00:06 103 H 100 06/08/21 00:03 108 H 89 L 06/08/21 00:01 113 H 100 06/07/21 23:56 105 H 72 L 06/07/21 23:51 99 H 100 06/07/21 23:50 100 H 90 06/07/21 23:46 114 H 100 06/07/21 23:41 112 H 94 06/07/21 23:40 105 H 92 06/07/21 23:36 118 H 100 06/07/21 23:35 86 88 L 06/07/21 23:31 96 H 100 06/07/21 23:26 116 H 100 06/07/21 23:24 99 H 92 06/07/21 23:21 113 H 98 06/07/21 23:17 110 H 90 06/07/21 23:16 106 H 98 06/07/21 23:11 98 H 71 L 06/07/21 23:06 115 H 99 06/07/21 23:04 113 H 129/61 06/07/21 23:01 106 H 100 06/07/21 22:59 36.9 C 18 06/07/21 22:56 104 H 100 06/07/21 22:51 112 H 100 06/07/21 22:50 112 H 127/65 91 06/07/21 22:46 102 H 100 06/07/21 22:44 93 H 93 06/07/21 22:41 90 100 06/07/21 22:36 93 H 103/54 L 100 06/07/21 22:31 100 H 100 06/07/21 22:26 95 H 100 06/07/21 22:22 86 111/56 L 06/07/21 22:21 87 100 06/07/21 22:16 86 100 06/07/21 22:12 110 H 93 06/07/21 22:11 102 H 100 06/07/21 22:07 108 H 91 06/07/21 22:06 106 H 97 06/07/21 22:05 98 H 120/69 06/07/21 22:01 108 H 100 06/07/21 21:56 94 H 100 06/07/21 21:51 97 H 100 06/07/21 21:50 98 H 111/69 06/07/21 21:46 94 H 100 06/07/21 21:41 99 H 100 06/07/21 21:37 102 H 89 L 06/07/21 21:36 107 H 100 06/07/21 21:35 110 H 104/60 06/07/21 21:31 109 H 100 06/07/21 21:26 91 H 100 06/07/21 21:24 100 H 91 06/07/21 21:21 101 H 100 06/07/21 21:19 94 H 116/67 06/07/21 21:16 87 100 06/07/21 21:12 108 H 93 06/07/21 21:11 108 H 96 06/07/21 21:06 96 H 100 06/07/21 21:05 93 H 120/61 06/07/21 21:02 104 H 91 06/07/21 21:01 96 H 100 06/07/21 21:00 36.8 C 18 06/07/21 20:56 91 H 87 L 06/07/21 20:51 108 H 100 06/07/21 20:50 100 H 114/56 L 06/07/21 20:46 96 H 100 06/07/21 20:41 97 H 100 06/07/21 20:39 96 H 92 06/07/21 20:36 97 H 100 06/07/21 20:35 105 H 138/74 06/07/21 20:31 101 H 92 06/07/21 20:27 18 06/07/21 20:26 92 H 100 06/07/21 20:24 89 90 06/07/21 20:21 84 100 06/07/21 20:20 82 113/61 06/07/21 20:19 86 89 L 06/07/21 20:16 85 100 06/07/21 20:11 90 99 06/07/21 20:10 90 88 L 06/07/21 20:07 84 113/79 06/07/21 20:06 84 100 06/07/21 20:03 82 89 L 06/07/21 20:01 76 18 100 06/07/21 19:57 99 H 90 06/07/21 19:56 83 98 06/07/21 19:52 96 H 91 06/07/21 19:51 95 H 100 06/07/21 19:50 73 107/63 06/07/21 19:46 80 100 06/07/21 19:41 77 100 06/07/21 19:36 75 94 06/07/21 19:35 75 108/64 06/07/21 19:34 81 93 06/07/21 19:31 85 100 06/07/21 19:26 92 H 88 L 06/07/21 19:23 88 91 06/07/21 19:21 90 98/53 L 100 06/07/21 19:17 82 91 06/07/21 19:16 82 97 06/07/21 19:11 36.8 C 95 H 18 89 L 06/07/21 19:06 81 100 06/07/21 19:05 83 109/73 92 06/07/21 19:01 96 H 100 06/07/21 18:58 82 90 06/07/21 18:56 77 100 06/07/21 18:52 74 92 06/07/21 18:51 72 110/68 99 06/07/21 18:46 80 99 06/07/21 18:41 84 100 06/07/21 18:36 71 100 06/07/21 18:34 80 108/69 06/07/21 18:31 75 100 06/07/21 18:30 20 06/07/21 18:26 36.4 C L 76 20 100 06/07/21 18:22 34 L 109/65 06/07/21 18:21 81 100 06/07/21 18:19 67 89 L 06/07/21 18:16 72 100 06/07/21 18:11 85 99 06/07/21 18:06 79 100 06/07/21 18:04 85 93 06/07/21 18:00 89 20 99 06/07/21 17:59 87 85 L 06/07/21 17:55 83 100 06/07/21 17:50 85 100 06/07/21 17:49 84 98/58 L 06/07/21 17:47 86 93 06/07/21 17:45 81 20 100 06/07/21 17:40 86 100 06/07/21 17:35 79 108/59 L 100 06/07/21 17:33 86 91 06/07/21 17:30 90 100 06/07/21 17:25 84 100 06/07/21 17:23 92 H 89 L 06/07/21 17:20 80 106/55 L 100 06/07/21 17:15 79 100 06/07/21 17:10 80 100 06/07/21 17:05 72 100 06/07/21 17:02 86 94 06/07/21 17:00 71 20 100 06/07/21 16:55 82 100 06/07/21 16:50 77 96/52 L 100 06/07/21 16:45 69 100 06/07/21 16:40 76 100 06/07/21 16:35 77 98/51 L 100 06/07/21 16:34 74 92 06/07/21 16:30 36.3 C L 76 20 100 06/07/21 16:25 85 92 03/28/22 16:24 98 H 90 06/07/21 16:21 36.3 C L 20 06/07/21 16:20 91 H 100 06/07/21 16:19 84 118/61 06/07/21 16:15 88 100 06/07/21 16:12 94 H 125/61 06/07/21 16:10 92 H 100 06/07/21 16:08 90 125/76 06/07/21 16:06 20 06/07/21 16:05 94 H 96 06/07/21 16:01 91 H 111/58 L 06/07/21 16:00 85 20 100 06/07/21 15:59 90 118/64 06/07/21 15:57 82 118/62 06/07/21 15:56 90 114/55 L 06/07/21 15:55 92 H 100 06/07/21 15:54 89 92 06/07/21 15:53 86 118/54 L 06/07/21 15:50 86 20 100 06/07/21 15:47 85 88 L 06/07/21 15:45 87 100 06/07/21 15:40 100 H 93 06/07/21 15:37 82 127/78 06/07/21 15:35 78 126/71 100 06/07/21 15:34 79 92 06/07/21 15:30 79 100 06/07/21 15:29 83 90 06/07/21 15:25 85 100 06/07/21 15:21 24 06/07/21 15:20 88 88 L 06/07/21 15:18 87 100 06/07/21 15:13 86 91 06/07/21 15:12 83 100 06/07/21 15:07 79 100 06/07/21 15:00 22 06/07/21 14:30 20 06/07/21 14:02 71 115/67 06/07/21 14:00 36.5 C 20 06/07/21 13:30 20 06/07/21 13:01 78 112/62 06/07/21 13:00 20 06/07/21 12:27 20 06/07/21 12:05 85 110/70 06/07/21 12:00 20 06/07/21 11:30 20 06/07/21 11:00 36.6 C 06/07/21 10:59 79 116/70 06/07/21 10:30 20 06/07/21 10:01 87 120/62 06/07/21 10:00 06/07/21 09:00 20 06/07/21 08:57 85 115/70 06/07/21 07:24 36.5 C 06/07/21 07:23 96 H 117/74 Pain Intensity Abdomen: Pain Intensity: 7 Transfer of Care Handoff Completed per policy Notes Mental Status: alert / awake / arousable and participated in evaluation Patient Amnestic to Procedure: Yes Nausea / Vomiting: adequately controlled Pain: adequately controlled Airway Patency, RR, SpO2: stable & adequate BP & HR: stable & adequate Hydration State: stable & adequate Anesthetic Complications: no major complications apparent and Pt Satisfied with anesthetic care
[2021-06-08] MEDS: OXYTOCIN 20 UNITS in LACTATED RINGER'S 1,000 ML IV SCH ×2 (03:48→13:00)
[2021-06-08] MEDS: KETOROLAC 30 MG/ML VIAL IV PRN ×3 (03:48→18:40)
[2021-06-08] MEDS: PRENATAL VITAMIN 1 TAB PO SCH (08:02)
[2021-06-08] MEDS: DOCUSATE SODIUM 100 MG CAP PO SCH ×2 (08:02→21:31)
[2021-06-08] MEDS: FERROUS SULFATE 325 MG TAB PO SCH (08:02)
[2021-06-08] MEDS: SIMETHICONE 80 MG CHEW PO SCH ×4 (08:02→21:31)
--- NOTE | 2021-06-08 10:58 | Obstetrical Progress Note ---
Date of Service June 08, 2021 Assessment & Plan Admission and Anticipated Discharge Date Admission Date: June 07, 2021 Subjective Postop check Patient is seen and examined Feels well, no complaints Pain is under control with meds No CP/ SOB/ Dizziness/ N&V/ VB/ Leg pain Not OOB yet Tolerating clears Explained about the surgery and findings Breast feeding Vital Signs Temp Pulse Pulse Resp BP BP Pulse Ox 06/08/21 10:54 18 96 06/08/21 09:02 18 97 06/08/21 08:00 18 97 06/08/21 07:45 36.3 C L 76 18 103/64 97 06/08/21 07:00 18 98 06/08/21 06:00 18 97 06/08/21 05:15 36.6 C 81 18 119/60 95 06/08/21 05:13 93 H 98 06/08/21 05:12 80 119/60 06/08/21 05:08 76 95 06/08/21 05:03 76 96 06/08/21 04:58 81 99 06/08/21 04:53 85 98 06/08/21 04:48 84 97 06/08/21 04:43 78 97 06/08/21 04:38 89 97 06/08/21 04:37 82 109/54 L 06/08/21 04:33 80 97 06/08/21 04:29 78 120/58 L 06/08/21 04:28 80 98 06/08/21 04:23 89 98 06/08/21 04:18 87 138/65 98 06/08/21 04:13 80 98 06/08/21 04:08 89 136/72 98 06/08/21 04:07 73 94 06/08/21 04:04 37.1 C 06/08/21 04:03 105 H 97 06/08/21 04:00 18 06/08/21 03:58 72 118/56 L 97 06/08/21 03:53 81 98 06/08/21 03:48 87 137/67 98 06/08/21 03:43 89 99 06/08/21 03:38 89 99 06/08/21 03:37 94 H 134/73 06/08/21 03:33 92 H 100 06/08/21 03:30 18 06/08/21 03:28 93 H 97 06/08/21 03:27 89 126/59 L 06/08/21 03:23 86 99 06/08/21 03:20 18 06/08/21 03:18 102 H 99 06/08/21 03:17 86 118/57 L 06/08/21 03:13 94 H 100 06/08/21 03:10 18 06/08/21 03:08 87 100 06/08/21 03:07 85 125/67 06/08/21 03:03 96 H 99 06/08/21 03:00 18 06/08/21 02:58 97 H 103/58 L 97 06/08/21 02:53 93 H 97 06/08/21 02:50 18 06/08/21 02:48 97 H 122/56 L 98 06/08/21 02:43 92 H 100 06/08/21 02:40 18 06/08/21 02:39 103 H 120/58 L 06/08/21 02:38 103 H 99 06/08/21 02:33 112 H 93 06/08/21 02:30 37.1 C 18 06/08/21 02:28 113 H 119/56 L 98 06/08/21 00:56 92 H 100 06/08/21 00:51 100 H 86 L 06/08/21 00:46 88 100 06/08/21 00:44 95 H 89 L 06/08/21 00:41 95 H 100 06/08/21 00:36 92 H 100 06/08/21 00:35 97 H 92 06/08/21 00:31 81 100 06/08/21 00:27 101 H 93 06/08/21 00:26 107 H 96 06/08/21 00:21 90 105/67 100 06/08/21 00:16 97 H 100 06/08/21 00:11 104 H 100 06/08/21 00:10 101 H 88 L 06/08/21 00:06 103 H 100 06/08/21 00:03 108 H 89 L 06/08/21 00:01 113 H 100 06/07/21 23:56 105 H 72 L 06/07/21 23:51 99 H 100 06/07/21 23:50 100 H 90 06/07/21 23:46 114 H 100 06/07/21 23:41 112 H 94 06/07/21 23:40 105 H 92 06/07/21 23:36 118 H 100 06/07/21 23:35 86 88 L 06/07/21 23:31 96 H 100 06/07/21 23:26 116 H 100 06/07/21 23:24 99 H 92 06/07/21 23:21 113 H 98 06/07/21 23:17 110 H 90 06/07/21 23:16 106 H 98 06/07/21 23:11 98 H 71 L 06/07/21 23:06 115 H 99 06/07/21 23:04 113 H 129/61 06/07/21 23:01 106 H 100 06/07/21 22:59 36.9 C 18 Intake & Output 06/07/21 06/08/21 06/08/21 22:59 06:59 14:59 Intake Total 1971.451 / 3037.621 76.137 / 3037.621 Output Total 525 / 4825 3000 / 4825 1250 / 1250 Balance 1446.451 / -1787.379 -2923.863 / -1787.379 -1250 / -1250 Weight 80.286 kg Intake: IV 1971.451 / 3037.621 76.137 / 3037.621 Lactated Ringer's 1,000 ml @ 1888.85 / 2856.35 150 mls/hr IV .Q6H40M PRN Rx#: [id number] Oxytocin 30 units In 500 ml @ 0 82.601 / 181.271 76.137 / 181.271 UNITS/HR IV .Q0M PRN Rx#: [id number] Output: Urine 75 / 1375 Urine Amount (Catheter) 450 / 3450 3000 / 3450 1250 / 1250 Mcguire/Indwelling 450 / 3450 3000 / 3450 1250 / 1250 PE: General: Alert, orientedx3, NAD CVS: S1S2 RRR Lungs: CTAB Abd: soft, NT, ND, BS+, Incision/ Dressing C/D/I minimal VB Ext: NT, no edema, AP: 30 yo female s/p Repeat Csection after TOLAC , pod#0 VSS Afebrile doing well Continue to routine postop care Encourage PO intake, may ambulate D/C mcguire Results & Data ([facility]) Vital Signs (Past 12 Hours) Vital Signs Temp Pulse Pulse Resp BP BP Pulse Ox 06/08/21 10:54 18 96 06/08/21 09:02 18 97 06/08/21 08:00 18 97 06/08/21 07:45 36.3 C L 76 18 103/64 97 06/08/21 07:00 18 98 06/08/21 06:00 18 97 06/08/21 05:15 36.6 C 81 18 119/60 95 06/08/21 05:13 93 H 98 06/08/21 05:12 80 119/60 06/08/21 05:08 76 95 06/08/21 05:03 76 96 06/08/21 04:58 81 99 06/08/21 04:53 85 98 06/08/21 04:48 84 97 06/08/21 04:43 78 97 06/08/21 04:38 89 97 06/08/21 04:37 82 109/54 L 06/08/21 04:33 80 97 06/08/21 04:29 78 120/58 L 06/08/21 04:28 80 98 06/08/21 04:23 89 98 06/08/21 04:18 87 138/65 98 06/08/21 04:13 80 98 06/08/21 04:08 89 136/72 98 06/08/21 04:07 73 94 06/08/21 04:04 37.1 C 06/08/21 04:03 105 H 97 06/08/21 04:00 18 06/08/21 03:58 72 118/56 L 97 06/08/21 03:53 81 98 06/08/21 03:48 87 137/67 98 06/08/21 03:43 89 99 06/08/21 03:38 89 99 06/08/21 03:37 94 H 134/73 06/08/21 03:33 92 H 100 06/08/21 03:30 18 06/08/21 03:28 93 H 97 06/08/21 03:27 89 126/59 L 06/08/21 03:23 86 99 06/08/21 03:20 18 06/08/21 03:18 102 H 99 06/08/21 03:17 86 118/57 L 06/08/21 03:13 94 H 100 06/08/21 03:10 18 06/08/21 03:08 87 100 06/08/21 03:07 85 125/67 06/08/21 03:03 96 H 99 06/08/21 03:00 18 06/08/21 02:58 97 H 103/58 L 97 06/08/21 02:53 93 H 97 06/08/21 02:50 18 06/08/21 02:48 97 H 122/56 L 98 06/08/21 02:43 92 H 100 06/08/21 02:40 18 06/08/21 02:39 103 H 120/58 L 06/08/21 02:38 103 H 99 06/08/21 02:33 112 H 93 06/08/21 02:30 37.1 C 18 06/08/21 02:28 113 H 119/56 L 98 06/08/21 00:56 92 H 100 06/08/21 00:51 100 H 86 L 06/08/21 00:46 88 100 06/08/21 00:44 95 H 89 L 06/08/21 00:41 95 H 100 06/08/21 00:36 92 H 100 06/08/21 00:35 97 H 92 06/08/21 00:31 81 100 06/08/21 00:27 101 H 93 06/08/21 00:26 107 H 96 06/08/21 00:21 90 105/67 100 06/08/21 00:16 97 H 100 06/08/21 00:11 104 H 100 06/08/21 00:10 101 H 88 L 06/08/21 00:06 103 H 100 06/08/21 00:03 108 H 89 L 06/08/21 00:01 113 H 100 06/07/21 23:56 105 H 72 L 06/07/21 23:51 99 H 100 06/07/21 23:50 100 H 90 06/07/21 23:46 114 H 100 06/07/21 23:41 112 H 94 06/07/21 23:40 105 H 92 06/07/21 23:36 118 H 100 06/07/21 23:35 86 88 L 06/07/21 23:31 96 H 100 06/07/21 23:26 116 H 100 06/07/21 23:24 99 H 92 06/07/21 23:21 113 H 98 06/07/21 23:17 110 H 90 06/07/21 23:16 106 H 98 06/07/21 23:11 98 H 71 L 06/07/21 23:06 115 H 99 06/07/21 23:04 113 H 129/61 06/07/21 23:01 106 H 100 06/07/21 22:59 36.9 C 18
--- NOTE | 2021-06-08 12:33 | Operative Report (OR) ---
DATE OF SURGERY: 06/08/2021. PREOPERATIVE DIAGNOSES: The patient is a 30-year-old 3, para 2-0-1-2, at 39 weeks and 6 days of gestation with history of prior Ceseran for Baby B of twin , who was admitted for TOLAC / (trial of labor after /vaginal after ), induction of labor with Davis balloon mechanical dilation, low dose Oxytocin, AROM, arrest of descent in second stage of labor despite adequate contractions and pushing efforts, occiput posterior position, failed TOLAC/ . POSTOPERATIVE DIAGNOSES: The patient is a 30-year-old 3, para 2-0-1-2, at 39 weeks and 6 days of gestation, with history of prior Ceseran for Baby B of twin , who was admitted for TOLAC / (trial of labor after /vaginal after ), induction of labor with Davis balloon mechanical dilation, low dose Oxytocin, AROM, arrest of descent in second stage of labor despite adequate contractions and pushing efforts, occiput posterior position, failed TOLAC/ . PROCEDURE: Repeat low transverse with Pfannenstiel skin incision. SURGEON: Ulices Berger MD. EDUCATIONAL ADMINISTRATION TEACHER: Gely Garcia RN. ESTIMATED BLOOD LOSS: 600 mL. DRAINS: Davis catheter drained 200 mL of urine. ANESTHESIA: Labor epidural. ANESTHESIOLOGIST: Dr. Winchester. COMPLICATIONS: None. FINDINGS: Baby was a viable male delivered at 01:26 a.m. in cephalic presentation in direct occiput posterior position. Apgars were 8/9, weight was 3485 grams. Maternal findings: Normal uterus and ovaries. There were adhesions between the fallopian tube and the posterior uterine wall, more on the left side and partially on the right side. DESCRIPTION OF PROCEDURE: The patient was taken to the operating room where epidural anesthesia was found to be adequate. She was placed in dorsal supine position with leftward tilt. She was prepared and draped in the usual sterile fashion. A Pfannenstiel skin incision was made and carried through to the underlying layer of fascia with the Bovie. Fascia was incised in the midline and the incision was extended laterally with the help of Mitchell scissors. Upper aspect of the fascial incision was grasped with 2 Rocío clamps, elevated, and the underlying rectus muscles were dissected off sharply with Mitchell scissors. Lower aspect of the fascial incision was then grasped with 2 Rocío clamps, elevated, and the underlying rectus muscles were dissected off sharply with Mitchell scissors. Rectus muscles were in the midline and the peritoneum was entered spontaneously. There was clear fluid, which was suctioned and then the peritoneal incision was extended superiorly and inferiorly with good visualization of the bladder. Bladder blade was inserted. Vesicouterine peritoneum was attached to the lower uterine segment towards the midline. It was held with cotton picker operator and was entered with the Metzenbaum scissors and then the bladder flap was it was created digitally and a bladder blade was reinserted. The bladder was retracted. Lower uterine segment was intact, but it was very thin, almost like one layer tissue/ membrane. It was incised gently with a scalpel and then clear fluid was obtained and then incision was extended laterally with the help of fingers. When incision was opened and we came across the baby's face, he was in direct occiput posterior position. The head was delivered without difficulty. Shoulders were delivered with minimal traction. Baby was vigorously moving and crying. Cord was clamped x2 and cut at 1 minute delay. Baby was handed off to the waiting pediatric team with Dr. Bowman. Placenta was delivered manually as intact and complete. Uterus was exteriorized and cleared of all clots and debris. Uterine incision was repaired with 0 Vicryl in a running locked fashion. A second imbricating layer was placed with another 0 Vicryl in a running fashion. There were thinned areas on the lower segment on the inferior part of the incision. Those were repaired horizontally and incorporated to the thickness of incision with 0 Vicryl. Excellent hemostasis was achieved. Then the cul-de-sac was irrigated with warm normal saline and suctioned, and the uterus was returned to the abdomen. Pelvis was irrigated with warm normal saline and suctioned. Uterine incision was checked to be again hemostatic. Then, parietal peritoneum together with the rectus muscles were repaired with 3- 0 Vicryl in a running fashion and then the hemostasis was achieved on the rectus muscles via Bovie and sutures. The rectus fascia was reapproximated with 0 Vicryl in a running fashion. Subcuticular fat tissue was brought together with 3-0 Vicryl in a running fashion. The skin was closed with 4-0 Monocryl in a subcuticular fashion. The patient tolerated the procedure well. Sponge, lap, needle count was correct x3. No complications happened. I was present during the whole procedure. At the end of the procedure, the patient was taken to recovery room in stable condition. Job ID: [id number] [facility]
[2021-06-08] MEDS ORDERED: diphenhydrAMINE Capsule 25 MG CAP PO PRN (20:07)
[2021-06-08] MEDS ORDERED: KETOROLAC 30 MG/ML VIAL IV PRN (20:07)
[2021-06-08] MEDS ORDERED: PROMETHAZINE HCL 25 MG in SODIUM CHLORIDE 0.9% 50 ML IV PRN (20:07)
[2021-06-08] MEDS ORDERED: MEPERIDINE HCL 50 MG/ML CARP IV PRN (20:07)
[2021-06-09] MEDS: oxyCODONE/ACETAMINOPHEN 5mg/325mg TAB PO PRN ×6 (00:30→22:52)
[2021-06-09] MEDS: IBUPROFEN 600 MG TAB PO PRN ×6 (00:30→22:53)
--- NOTE | 2021-06-09 07:32 | Obstetrical Progress Note ---
Date of Service June 09, 2021 Assessment & Plan Admission and Anticipated Discharge Date Admission Date: June 07, 2021 Subjective Patient is seen and examined. She feels well, no complaints. Pain is under control with oral meds. Ambulating without dizziness Voiding without difficulty Tolerating regular diet with out N&V Flatus NEG BM NEG Bleeding is minimal No fever/ chills/ CP/ SOB/ N&V/ Leg pain Breast feeding without problems Vital Signs Temp Pulse Resp BP Pulse Ox 06/09/21 00:10 37.2 C 96 H 18 96/56 L 99 06/08/21 20:25 37.2 C 67 18 99/59 L 100 06/08/21 19:15 20 98 06/08/21 18:15 18 97 06/08/21 17:00 18 98 06/08/21 16:45 37.2 C 81 18 107/68 97 06/08/21 16:00 18 98 06/08/21 15:35 18 97 06/08/21 14:51 18 98 06/08/21 13:11 18 98 06/08/21 12:06 18 98 06/08/21 11:47 36.9 C 72 18 104/65 98 06/08/21 11:00 18 98 06/08/21 10:00 18 96 06/08/21 09:02 18 97 06/08/21 08:00 18 97 06/08/21 07:45 36.3 C L 76 18 103/64 97 Intake and Output 06/08/21 06/09/21 06/09/21 22:59 06:59 14:59 Intake Total 0 1002 Output Total 1425 / 4700 500 / 4700 Balance -1425 / -3698 -500 / -3698 Intake: IV 0 / 1002 Oxytocin 30 units In 500 ml @ 0 0 / 0 UNITS/HR IV .Q0M PRN Rx#: [id number] Output: Urine 500 / 500 Urine Amount (Catheter) 1425 / 4200 Davis/Indwelling 1425 / 4200 Lab Results 06/07/21 06/07/21 06/07/21 Range/Units 08:18 08:18 08:18 WBC 8.49 (4.8-10.8) K/uL RBC 5.48 H (4.2-5.4) M/uL Hgb 12.9 (12.0-16.0) g/dL Hct 39.2 (37-47) % MCV 71.5 L (80-100) fL MCH 23.5 L (25-34) pg MCHC 32.9 (32-36) g/dL RDW Std Deviation 39.7 (36.4-46.3) fL RDW Coeff of Romy 15.2 H (11.5-14.5) % Plt Count 235 (130-400) K/uL MPV 10.8 H (7.4-10.4) fL Sodium 136 (136-145) mmol/L Potassium 3.5 (3.5-5.1) mmol/L Chloride 106 (98-107) mmol/L Carbon Dioxide 21 (21-32) mmol/L Anion Gap 9 (3-11) BUN 6 (6-23) mg/dl Creatinine 0.60 (0.6-1.2) mg/dl Est Cr Clr Drug Dosing Not Reportable Est GFR ( Amer) 139.8 ml/min Est GFR (Non-Af Amer) 120.6 ml/min BUN/Creatinine Ratio 10.0 (10-20) Glucose 73 (70-99(Fasting)) mg/dl Calcium 9.1 (8.5-10.1) mg/dl Total Bilirubin 0.3 (0.2-1.0) mg/dl AST 15 (13-39) U/L ALT 9 (7-52) U/L Alkaline Phosphatase 107 H (34-104) U/L Total Protein 6.8 (6.0-8.3) gm/dl Albumin 3.6 (3.4-5.0) gm/dl Globulin 3.2 (2.5-4.0) gm/dl Albumin/Globulin Ratio 1.1 (0.9-2) Blood Type O Positive Antibody Screen NEGATIVE Crossmatch See Detail PE: General: Alert, orientedx3, NAD CVS: S1S2 RRR Lungs; CTAB Abd: soft, NT, ND, BS+, fundus firm, below Umbilicus Incision: Clean, dry, intact Perineum intact, Lochia rubra minimal Ext; NT, no edema AP: 30 yo s/p C Section, pod# 1 VSS Afebrile doing well Continue routine postop care Encourage ambulation, PO intake All questions were answered D/C home tomorrow Results & Data ([facility]) Vital Signs (Past 12 Hours) Vital Signs Temp Pulse Resp BP Pulse Ox 06/09/21 00:10 37.2 C 96 H 18 96/56 L 99 06/08/21 20:25 37.2 C 67 18 99/59 L 100
[2021-06-09 08:18] LABS: Hematocrit (blood only) 28.3 % (37-47); Hemoglobin 9.5 g/dL (12.0-16.0); Mean Corpuscular Hemoglobin 23.6 pg (25-34); Mean Corpuscular Hgb Conc 33.6 g/dL (32-36); Mean Corpuscular Volume 70.4 fL (80-100); Mean Platelet Volume 10.2 fL (7.4-10.4); Platelet Count 207 K/uL (130-400); RDW Standard Deviation 38.8 fL (36.4-46.3); Red Blood Count 4.02 M/uL (4.2-5.4); White Blood Count 13.18 K/uL (4.8-10.8)
[2021-06-09] MEDS: FERROUS SULFATE 325 MG TAB PO SCH (08:19)
[2021-06-09] MEDS: PRENATAL VITAMIN 1 TAB PO SCH (08:19)
[2021-06-09] MEDS: SIMETHICONE 80 MG CHEW PO SCH ×4 (08:19→20:54)
[2021-06-09] MEDS: DOCUSATE SODIUM 100 MG CAP PO SCH ×2 (08:20→20:54)
[2021-06-09 08:26] LABS: Basophils # (auto) 0.03 K/uL (0-0.2); Basophils % (auto) 0.2 %; Eosinophils # (auto) 0.12 K/uL (0-0.5); Eosinophils % (auto) 0.9 %; Immature Granulocytes # (auto) 0.07 K/uL (0.00-0.02); Immature Granulocytes % (auto) 0.5 %; Lymphocytes # (auto) 2.11 K/uL (1.2-3.4); Microcytosis Present; Monocytes # (auto) 0.73 K/uL (0.11-0.59); Monocytes % (auto) 5.5 %; Neutrophils # (auto) 10.12 K/uL (1.4-6.5); Neutrophils % (auto) 76.9 %
[2021-06-09] MEDS ORDERED: bisacodyL 5 MG TABEC PO SCH (20:00)
[2021-06-10] MEDS ORDERED: bisacodyL 10 MG SUPP PR PRN (02:29)
[2021-06-10] MEDS: oxyCODONE/ACETAMINOPHEN 5mg/325mg TAB PO PRN ×2 (03:40→09:25)
[2021-06-10] MEDS: IBUPROFEN 600 MG TAB PO PRN ×2 (03:40→09:24)
[2021-06-10 06:30] LABS: Hematocrit (blood only) 27.1 % (37-47); Mean Corpuscular Hemoglobin 23.6 pg (25-34); Mean Corpuscular Hgb Conc 33.2 g/dL (32-36); Mean Corpuscular Volume 70.9 fL (80-100); Mean Platelet Volume 10.2 fL (7.4-10.4); Platelet Count 204 K/uL (130-400); RDW Coefficient of Variation 15.1 % (11.5-14.5); RDW Standard Deviation 39.1 fL (36.4-46.3); Red Blood Count 3.82 M/uL (4.2-5.4); White Blood Count 10.03 K/uL (4.8-10.8)
[2021-06-10 06:58] LABS: Basophils # (auto) 0.02 K/uL (0-0.2); Basophils % (auto) 0.2 %; Eosinophils # (auto) 0.16 K/uL (0-0.5); Eosinophils % (auto) 1.6 %; Immature Granulocytes # (auto) 0.05 K/uL (0.00-0.02); Immature Granulocytes % (auto) 0.5 %; Lymphocytes % (auto) 16.9 %; Microcytosis Present; Neutrophils % (auto) 74.8 %
--- NOTE | 2021-06-10 07:17 | Obstetrical Progress Note ---
Date of Service June 10, 2021 Assessment & Plan (1) Normal course: Continue routine pp course D/c home today Subjective Ambulation: ambulating normally Voiding: no voiding problems Passing Gas:: Yes Diet Tolerance:: regular diet Lochia:: Small Feeding Type:: breast feeding Current Pain Level(1-10): 0 Doing well, wants to go home today if baby is discharged. No other issues/complaints Physical Exam Constitutional WD/WN, vitals as above Respiratory normal respiratory effort, lungs clear to auscultation Cardiovascular RRR, no murmur, no edema Gastrointestinal (Abdomen) normal bowel sounds, soft, nontender, no hepatosplenomegaly incision clean dry and intact Musculoskeletal Extremities: extremities normal to inspection Results & Data ([facility]) Vital Signs (Past 12 Hours) Vital Signs Temp Pulse Resp BP Pulse Ox 06/09/21 22:50 36.4 C L 82 18 101/61 98 06/09/21 20:45 36.9 C 76 18 102/63 98
[2021-06-10] MEDS: SIMETHICONE 80 MG CHEW PO SCH (09:23)
[2021-06-10] MEDS: DOCUSATE SODIUM 100 MG CAP PO SCH (09:24)
[2021-06-10] MEDS: PRENATAL VITAMIN 1 TAB PO SCH (09:24)
[2021-06-10] MEDS: FERROUS SULFATE 325 MG TAB PO SCH (09:24)
--- NOTE | 2021-06-22 06:43 | Discharge Summary (DS) ---
DATE OF ADMISSION: 06/07/2021 DATE OF DISCHARGE: 06/10/2021. DETAILS OF ADMISSION: The patient is a 30-year-old G3, P2-0-1-2 at 39 weeks and 5 days of gestation with history of prior section for baby B of twin . The patient was admitted for induction of labor for . She signed an informed consent and accepted the risks. Her cervix was favorable on the day of admission. We placed a Davis balloon and started low dose Pitocin in the morning of 06/07/2021. Vital signs were stable, afebrile. heart rate was reassuring. In afternoon, the Davis balloon was found to be in the vagina, removed. Cervix was 4-5 cm, 50%, -2 with a bulging bag. Artificial rupture of membranes was performed and clear fluid was obtained. heart rate was category 1 and at 6:30 in the same day, she received epidural. She was comfortable with heart rate was category 1. Pitocin was at 10 sherin [employer] per unit. She was checked again at 5:30 in the afternoon, cervix was unchanged. The patient was found to be fully dilated and she wants to labor down. Head stayed at 0 station. It was occiput posterior. heart rate was category 1 with some decelerations. Occiput posterior position was confirmed with a bedside ultrasound and then she started pushing. She pushed almost 2 hours and unable to bring the baby down more than +1 station. She pushed on side, knee-chest and in all different positions. Baby has been between 0 to +1 station. Head became a cone-shaped and occiput posterior position persist. Discussed the option of repeat and she accepted. She had repeat low transverse on 06/08/2021 in the morning. Her surgery was uncomplicated. She delivered a viable male infant at 1:26 a.m. Apgars were 8/9 and see dictated op note for details. On postop period, the patient was doing well, vital signs stable, afebrile. Urine output was adequate. Pain was under control. Davis was discontinued on postoperative day #1, and she was advanced to regular diet. Her incision was clean, dry and intact. On postop day #2, the patient was doing well, vital signs stable, afebrile, passing gas, tolerating regular diet. Pain was zero. The patient desired to be discharged on day 2. Discharge instructions were given. Prescriptions were written for pain. She is to be seen in the office in a week. Job ID: [id number] [facility]
== END 2021-06-10 15:55 | disposition home or self-care (01) | DRG 788 ==
LOC: 4S1 07:12 → 4E1 06-08 05:59
DX: O34.211 Maternal care for low transverse scar from previous cesarean delivery; O62.1 Secondary uterine inertia; Z3A.39 39 weeks gestation of pregnancy; O66.41 Failed attempted vaginal birth after previous cesarean delivery; Z37.0 Single live birth